=== PATIENT | female | born 2000 | race Caucasian/White ===

== ENCOUNTER 2020-03-16 15:50 | Inpatient (IN) ==
[2020-03-16] MEDS ORDERED: MISOPROSTOL 100 MCG TABLET VG PRN (16:04)
[2020-03-16] MEDS ORDERED: DEXTROSE 5%-LACTATED RINGERS 1,000 ML IV PRN (16:04)
[2020-03-16] MEDS ORDERED: ONDANSETRON 4 MG TAB.RAPDIS PO PRN (16:04)
[2020-03-16] MEDS ORDERED: RINGER'S SOLUTION,LACTATED 1,000 ML IV ONE (16:04)
[2020-03-16] MEDS ORDERED: OXYTOCIN/0.9 % SODIUM CHLORIDE 30 UNITS/500 ML BAG IV ONE (16:04)
--- NOTE | 2020-03-16 17:36 | HP ---
Chief Complaint - Chief Complaint Date of Service: 03/16/20 Time of Service: 16:00 Chief Complaint: oligohydramnios History of Present Illness: 19 yo at 38w2d presents to L&D for induction of labor due to oligohydramnios. Patient has been complaining of LOF for the past few days. She states she is always moist, but has never soaked through her underwear or pants and does not wear a pad. She has been examined multiple times for ROM, but has always been negative. She has had 3 elevated BPs over the course of her care (22wks, 28wks, 35wks). It has always been the first BP taken in the office with subsequent ones negative. She has been followed closely for possible GHTN; labs have always been WNL. Today's CLARITA was only 3.94cm with largest vertical pocket of 1.71cm. This complicated by anemia, hypothyroid, morbid obesity, borderline GHTN, and now oligohydramnios. Rh positive Rubella Nonimmune GBS negative. Medical History (Last Reviewed 03/16/20 @ 17:31 by Álvaro Jimenez DO) Anemia Onset Date: Unknown Anemia during Onset Date: ~01/06/20 History of irregular heartbeat Onset Date: Unknown Hypothyroid Onset Date: Unknown Anxiety Onset Date: Unknown Breast lump in female Onset Date: ~2015 @ age 14. Negative breast u/s. Obesity Onset Date: Unknown Wears glasses Onset Date: Unknown Surgical History: Surgical History (Last Reviewed 03/16/20 @ 17:31 by Álvaro Jimenez DO) No pertinent past surgical history Family History: Family History (Last Reviewed 03/16/20 @ 17:31 by Álvaro Jimenez DO) Mother Medical history unknown Father Alive and well Social History: (Last Reviewed 03/16/20 @ 17:31 by Álvaro Jimenez DO) Social History: adopted: No longterm: No Marital status: Single household members: significant other number of children: 1 current occupational status: unemployed current occupational exposures/hazards: No Highest level of school completed/degree received: high school graduate Sexually Active: Yes Service: No Tobacco: Smoking Status: Never smoker Alcohol: alcohol intake: never Substance Use: substance use type: does not use Dietary Habits: caffeine: Yes caffeine comment: 1/day Type: tea Exercise: Physical activity type: walking frequency: 1-2 times per week Brenna/Congregation: agree to transfusion: Yes Review Of Systems (GEN) - Review of Systems Generalized/Overall Review: Present: No Symptoms Reported EENTM: Present: No Symptoms Reported Respiratory: Present: No Symptoms Reported Cardiac: Present: No Symptoms Reported Abdominal: Present: No Symptoms Reported Genitourinary: Present: No Symptoms Reported, Other - LOF/vaginal d/c Musculoskeletal: Present: No Symptoms Reported Neurological: Present: No Symptoms Reported Skin: Present: No Symptoms Reported Endocrine: Present: No Symptoms Reported Allergies/Adverse Reactions: Allergies Allergy/AdvReac Type Severity Reaction Status Date / Time Tetanus Vaccines and Toxoid Allergy Intermediate Hives Verified 03/10/20 20:48 amoxicillin [From Augmentin] Allergy Unknown unsure Verified 03/10/20 20:48 cefaclor [From Ceclor] Allergy Unknown unsure Verified 03/10/20 20:48 cefuroxime [From Ceftin] Allergy Unknown unsure Verified 03/10/20 20:48 clavulanic acid Allergy Unknown unsure Verified 03/10/20 20:48 [From Augmentin] Penicillins Allergy Unknown unsure Verified 03/10/20 20:48 Home Medications: HOME MEDICATIONS levothyroxine 150 mcg capsule 150 mcg PO DAILY #30 cap 02/25/20 [Last Taken 03/16/20 0900] Vits96/Iron Fum/Folic [ S] 1 tab PO DAILY 03/01/20 [Last Taken 03/15/20 21:00] Ferrous Sulfate [Iron] 325 mg PO DAILY 03/14/20 [Last Taken 03/15/20 21:00] Exam - Exam Vital Signs: Vital Signs - Last Taken Temp 36.7 C 03/16/20 16:07 Pulse 117 H 03/16/20 16:07 Resp 20 03/16/20 16:07 BP 136/82 03/16/20 16:07 Pulse Ox 98 03/16/20 16:07 Constitutional: Present: Alert, Oriented x3, Cooperative, No distress ENT Exam: Present: hearing grossly normal Neck: Present: normal inspection, trachea midline. Absent: thyromegaly Breasts: Present: Exam deferred Respiratory: Present: lungs clear, no respiratory distress Cardiovascular/Chest: Present: normal peripheral pulses, regular rate, rhythm Abdomen: Present: soft, nontender, no rebound tenderness, other - Gravid /Rectal: Present: Other - Cervix 40/-3, no vaginal pooling, fern neg, nitrazine swab neg. Extremity: Present: no pedal edema, no calf tenderness Skin Exam: Present: normal color, warm/dry, no cyanosis Neurologic: Present: alert, normal mood/affect, oriented x 3, other - DTR 2/4, no clonus Appearance: Present: appropriate appearance, appropriate insight Eye contact: Present: cooperative, good eye contact Thoughts: Present: normal thought pattern, normal mood /affect Assessment/Plan - Assessment/Plan (1) Oligohydramnios Assessment: Admit for induction of labor. Epidural and pitocin PRN. Rubella vaccine PP. Problem: Acute Qualifiers: Fetus number: single or unspecified fetus Trimester: third trimester Qualified Code(s): O41.03X0 - Oligohydramnios, third trimester, not applicable or unspecified (2) Morbid obesity with BMI of 45.0-49.9, adult Problem: Chronic (3) Hypothyroid Problem: Chronic Qualifiers: Hypothyroidism type: unspecified Qualified Code(s): E03.9 - Hypothyroidism, unspecified (4) Anemia Problem: Chronic Qualifiers: Anemia type: iron deficiency Iron deficiency anemia type: inadequate dietary iron intake Qualified Code(s): D50.8 - Other iron deficiency anemias (5) Rubella non-immune status, antepartum Problem: Chronic
[2020-03-16] MEDS ORDERED: ACETAMINOPHEN 500 MG TABLET PO ONE (23:36)
[2020-03-16] MEDS ORDERED: ACETAMINOPHEN 500 MG TABLET ONE (23:40)
--- NOTE | 2020-03-17 08:55 | PN ---
Progess Note - Interim Date: 03/17/20 Time: 08:43 Narrative: 03/17/20 08:43 Patient rating her contractions as mild to moderate Vital signs stable. Pitocin at 10 mu/min. FHT: 130 baseline, reassuring contractions q 1-2 min Cervix: 2-3/50/-3, AROM-clear Impression: Intrauterine at 38-3/7 weeks induction of labor for oligohydramnios Plan: Continue present plan
[2020-03-17] MEDS ORDERED: NALOXONE HCL 1 MG/1 ML SYRG IV PRN (09:00)
[2020-03-17] MEDS ORDERED: ONDANSETRON HCL/PF 2 MG/ML VIAL IV PRN (09:00)
[2020-03-17] MEDS ORDERED: fentaNYL CITRATE/PF 50 MCG/ML AMPUL IT SCH (09:00)
[2020-03-17] MEDS ORDERED: BUPIVACAINE HCL/0.9 % NACL/PF 250 ML EP PRN (09:00)
[2020-03-17] MEDS ORDERED: LIDOCAINE HCL 50 ML VIAL ONE (09:42)
[2020-03-17] MEDS ORDERED: LIDOCAINE HCL 50 ML VIAL IJ PRN (09:44)
--- NOTE | 2020-03-17 10:18 | ANES ---
Anesthesia Pre Procedure Eval Vitals/Labs: Last Vital Signs Temp 36.7 C 03/16/20 16:07 Pulse 117 H 03/16/20 16:07 Resp 20 03/16/20 16:07 BP 136/82 03/16/20 16:07 Pulse Ox 98 03/16/20 16:07 HOME MEDICATIONS levothyroxine 150 mcg capsule 150 mcg PO DAILY #30 cap 02/25/20 [Last Taken 03/16/20 0900] Vits96/Iron Fum/Folic [ S] 1 tab PO DAILY 03/01/20 [Last Taken 03/15/20 21:00] Ferrous Sulfate [Iron] 325 mg PO DAILY 03/14/20 [Last Taken 03/15/20 21:00] Allergies/Adverse Reactions: Allergies Allergy/AdvReac Type Severity Reaction Status Date / Time Tetanus Vaccines and Toxoid Allergy Intermediate Hives Verified 03/10/20 20:48 amoxicillin [From Augmentin] Allergy Unknown unsure Verified 03/10/20 20:48 cefaclor [From Ceclor] Allergy Unknown unsure Verified 03/10/20 20:48 cefuroxime [From Ceftin] Allergy Unknown unsure Verified 03/10/20 20:48 clavulanic acid Allergy Unknown unsure Verified 03/10/20 20:48 [From Augmentin] Penicillins Allergy Unknown unsure Verified 03/10/20 20:48 - Planned Procedure Planned Procedure: medical induction for oligohydramnios Medication List Reviewed:: Yes Allergies Verified: Yes Medical History (Last Reviewed 03/17/20 @ 10:17 by Avery Christensen CRNA) Anemia Onset Date: Unknown Anemia during Onset Date: ~01/06/20 History of irregular heartbeat Onset Date: Unknown Hypothyroid Onset Date: Unknown Anxiety Onset Date: Unknown Breast lump in female Onset Date: ~2015 @ age 14. Negative breast u/s. Obesity Onset Date: Unknown Wears glasses Onset Date: Unknown Surgical History (Last Reviewed 03/17/20 @ 10:17 by Avery Christensen CRNA) No pertinent past surgical history Family History (Last Reviewed 03/17/20 @ 10:18 by Avery Christensen CRNA) Mother Medical history unknown Father Alive and well - Family Anesthesia History Family History:: no untoward family reactions to anesthesia - Airway/Neck/Teeth Within Normal Limits:: Yes Teeth Condition: intact Neck Exam: full range of motion Mallampatti Score: 2 Thyromental (T-M) distance: > 6 cm Mandibulo Hyoid distance: > 3 cm - Respiratory Respiratory Physical: lungs clear Smoking Status: Never smoker Sleep Apnea currently treated: No Sleep Apnea by current assessment: No - Cardiovascular Tolerate Activity: Fair Heart Sounds: S1 & S2, Regular - Gastrointestinal NPO since: 0800 - Anesthesia Assessment and Plan ASA Class: PS, II, E Anesthesia Type Plan: Epidural Planned difficult intubation/equipment available: No
--- NOTE | 2020-03-17 10:19 | ANES ---
Post Anesthesia Discharge - Transfer of Care Transfer of Care handoff given to nurse: Yes - Anesthesia Post Op Note Anesthesia Post Op Note: Care transferred to OB RN
--- NOTE | 2020-03-17 10:19 | ANES ---
Post Anesthesia Assessment - Vital Signs Vitals: Last Vital Signs Temp 36.7 C 03/16/20 16:07 Pulse 117 H 03/16/20 16:07 Resp 20 03/16/20 16:07 BP 136/82 03/16/20 16:07 Pulse Ox 98 03/16/20 16:07 Airway Patency: Normal - Mental Status Level Of Consciousness: Awake - Pain Level Pain Score: 2 - N/V Assessment Nausea/Vomiting Presence: None Dehydration:: No
--- NOTE | 2020-03-17 14:00 | ANES ---
Anesthesia Procedure Note Procedure Note: ANESTHESIA PROCEDURE NOTE Date of Procedure: 03/17/2020 Time of procedure: 1005. Performed by: Mil Christensen CRNA Instrument Worker: None. Preprocedure diagnosis: Active labor. Post procedure diagnosis: Same. Procedure: Insertion of labor epidural. Indications: The patient is a 19-year-old multi female in active labor requesting labor epidural for pain management. Findings: See below. Details of the procedure: The patient was placed in a sitting position. Back was prepped with DuraPrep. Patient was then draped in a sterile fashion. Lidocaine 1% was infiltrated to the skin and subcutaneous tissues at the level of the L3 4 interspace. The epidural space was identified using a 18-gauge Tuohy needle with [id number] technique. 20 mcg fentanyl was given intrathecally using a 27 ga. spinal needle. Epidural catheter was inserted without difficulty. Negative test dose was elicited using 5 mL of 1.5% preservative-free lidocaine plus epinephrine 1 200,000. The epidural catheter was then taped and secured in place. EBL: Minimal. Fluids: N/A. Specimen: N/A. Post procedure condition: The patient tolerated the procedure well. No complications were noted. Thank you for this consultation. White CRNA
[2020-03-17] MEDS ORDERED: fentaNYL CITRATE/PF 50 MCG/ML AMPUL IT ONE (15:58)
[2020-03-17 16:02] LABS: Random Urine Total Protein 26.9 mg/dL (0-12)
--- NOTE | 2020-03-17 16:14 | ANES ---
Anesthesia Procedure Note Procedure Note: ANESTHESIA PROCEDURE NOTE Date of Procedure: 03/17/2020 Time of procedure: 1600. Performed by: Mil Christensen CRNA Photo Machine Operator: None. Preprocedure diagnosis: Active labor. Post procedure diagnosis: Same. Procedure:Reinsertion of labor epidural. Indications: The patient is a 19-year-old multigravida female in active labor requesting labor epidural for pain management. Her previously placed epidural was dislodged from the epidural space Findings: See below. Details of the procedure: The patient was placed in a sitting position. Back was prepped with DuraPrep. Patient was then draped in a sterile fashion. Lidocaine 1% was infiltrated to the skin and subcutaneous tissues at the level of the L3 4 interspace. The epidural space was identified using a 18-gauge Tuohy needle with [id number] technique. 20 mcg fentanyl was given intrathecally using a 27 ga. spinal needle. Epidural catheter was inserted without difficulty. Negative test dose was elicited using 5 mL of 1.5% preservative-free lidocaine plus epinephrine 1 200,000. The epidural catheter was then taped and secured in place. EBL: Minimal. Fluids: N/A. Specimen: N/A. Post procedure condition: The patient tolerated the procedure well. No complications were noted. Thank you for this consultation. White CRNA
[2020-03-17 16:23] LABS: Hemoglobin 11.1 gm/dL (12.5-16.0); Mean Cell Volume 80.4 fl (78-100); Mean Corpuscular Hemoglobin 24.8 pg (27-31); Mean Corpuscular Hgb Conc 30.8 g/dl (32-36); Mean Platelet Volume 9.7 fl (8-12.5); Neutrophil # 11.2 K/mm3 (1.3-6.0); Neutrophil % 80.1 % (42-75.0); Platelet Count 244 K/mm3 (150-450); Red Blood Count 4.48 M/mm3 (4.2-5.4); Red Cell Distribution Width 15.6 % (11.5-14.0)
[2020-03-17 16:42] LABS: Albumin * 2.5 gm/dl (3.4-5.0); Anion Gap 17.4 mmol/L (6.8-13.8); BUN/Creatinine Ratio 7.5 (9.0-21.6); Bilirubin, Total 0.3 mg/dL (0.0-1.1); Calcium * 9.1 mg/dL (7.9-10.9); Carbon Dioxide 20.3 mmol/L (24-32.6); Potassium 3.7 mmol/L (3.4-4.6); Total Protein 6.9 gm/dL (6.2-8.2)
[2020-03-17] MEDS ORDERED: OXYTOCIN/0.9 % SODIUM CHLORIDE 30 UNITS/500 ML BAG IV ONE (17:07)
[2020-03-17] MEDS ORDERED: SENNOSIDES 8.6 MG TABLET PO PRN (17:07)
[2020-03-17] MEDS ORDERED: oxyCODONE HCL/ACETAMINOPHEN 1 TAB TABLET PO PRN (17:07)
[2020-03-17] MEDS ORDERED: ACETAMINOPHEN 500 MG TABLET PO PRN (17:07)
[2020-03-17] MEDS ORDERED: GLYCERIN/WITCH HAZEL LEAF 40 APPL BOX TP PRN (17:07)
[2020-03-17] MEDS ORDERED: HYDROCORTISONE 30 APPL TUBE TP PRN (17:07)
[2020-03-17] MEDS ORDERED: BISACODYL 10 MG SUPP.RECT RC PRN (17:07)
[2020-03-17] MEDS ORDERED: BENZOCAINE/MENTHOL 81 SPRAY CAN TP PRN (17:07)
--- NOTE | 2020-03-17 17:20 | OR ---
Operative Report - Dictated Report Narrative: Spontaneous vaginal delivery of vigorously crying viable female at 1639 on 03/17/2020 with Apgars 9 and 9, weighing 3562 g in ALYSHA position. Cord clamping delayed approximately 1 minute Placenta delivered complete, intact, with three vessel cord Estimated blood loss: Less than 50 ml Anesthesia: Epidural Lacerations: First-degree posterior vaginal laceration less than 1 cm with no repair necessary. History for History for Definition: * The number of deliveries resulting in a live the patient experienced prior to current hospitalization * The previous delivery of live twins or any live multiple gestation is considered one live event. *If primagravida or nulliparous is documented select zero for the number of previous live births. Live Events: Live Events: 1
[2020-03-17] MEDS: IBUPROFEN 800 MG TABLET PO PRN (18:16)
[2020-03-17] MEDS: DOCUSATE SODIUM 100 MG CAPSULE PO SCH (20:52)
[2020-03-18] MEDS: IBUPROFEN 800 MG TABLET PO PRN ×3 (03:45→18:27)
[2020-03-18] MEDS: LEVOTHYROXINE SODIUM 150 MCG TABLET PO SCH (07:16)
[2020-03-18] MEDS: FERROUS SULFATE 325 MG TABLET PO SCH (08:46)
[2020-03-18] MEDS: PRENATAL VITS96/IRON FUM/FOLIC 1 TAB TABLET PO SCH (08:46)
[2020-03-18] MEDS: DOCUSATE SODIUM 100 MG CAPSULE PO SCH ×2 (08:46→21:00)
--- NOTE | 2020-03-18 09:30 | PN ---
Subjective - Date and Time Seen Date: 03/18/20 Time: 09:00 Objective - Vitals Vitals: Last Vital Signs Temp 36.1 C 03/18/20 06:32 Pulse 81 03/18/20 06:32 Resp 18 03/18/20 06:32 BP 133/77 03/18/20 06:32 Pulse Ox 98 03/18/20 06:32 Patient complains of back being sore where epidural was placed. Denies headache, visual changes, or epigastric pain. Lochia wnl abdomen - soft, nontender Uterus -firm, at umbilicus - 1 No calf tenderness Impression: day #1 - s/p spontaneous vaginal delivery. Gestational hypertension-stable Plan: Continue routine care. Preeclampsia precautions - Abnormal Lab Findings Abnormal Lab Findings: Abnormal Lab Results 03/17/20 03/17/20 03/17/20 Range/Units 15:40 16:15 16:15 WBC 14.0 H (4.0-10.5) K/mm3 Hgb 11.1 L (12.5-16.0) gm/dL Hct 36.0 L (37.0-47.0) % MCH 24.8 L (27-31) pg MCHC 30.8 L (32-36) g/dl RDW 15.6 H (11.5-14.0) % Immature Gran # (Auto) 0.06 H (0.000-0.0310) K/mm3 Neutrophils % 80.1 H (42-75.0) % Lymphocytes % 12.8 L (20-51) % Neutrophils # 11.2 H (1.3-6.0) K/mm3 Carbon Dioxide 20.3 L (24-32.6) mmol/L Anion Gap 17.4 H (6.8-13.8) mmol/L BUN/Creatinine Ratio 7.5 L (9.0-21.6) ALT 18 L (19-67) U/L Albumin 2.5 L (3.4-5.0) gm/dl U Random Total Protein 26.9 H (0-12) mg/dL U Amado Prot/Creat Ratio 288 H (0-199) mg/gm Cauti Physician Documentation - Urinary Catheter Management Urethral ([place]) Date of Insertion: 03/17/20 Time of Insertion: 10:30 Date of Removal: 03/17/20 Time of Removal: 16:30 Assessment/Plan - Problems/Diagnosis (1) Oligohydramnios Problem: Acute Qualifiers: Fetus number: single or unspecified fetus Trimester: third trimester Qualified Code(s): O41.03X0 - Oligohydramnios, third trimester, not applicable or unspecified (2) Morbid obesity with BMI of 45.0-49.9, adult Problem: Chronic (3) Hypothyroid Problem: Chronic Qualifiers: Hypothyroidism type: unspecified Qualified Code(s): E03.9 - Hypothyroidism, unspecified (4) Anemia Problem: Chronic Qualifiers: Anemia type: iron deficiency Iron deficiency anemia type: inadequate dietary iron intake Qualified Code(s): D50.8 - Other iron deficiency anemias (5) Rubella non-immune status, antepartum Problem: Chronic
[2020-03-19] MEDS: IBUPROFEN 800 MG TABLET PO PRN ×2 (01:16→07:36)
[2020-03-19] MEDS: LEVOTHYROXINE SODIUM 150 MCG TABLET PO SCH (07:36)
[2020-03-19] MEDS: PRENATAL VITS96/IRON FUM/FOLIC 1 TAB TABLET PO SCH ×2 (07:36→08:01)
[2020-03-19] MEDS: DOCUSATE SODIUM 100 MG CAPSULE PO SCH ×2 (07:36→08:01)
[2020-03-19] MEDS: FERROUS SULFATE 325 MG TABLET PO SCH ×2 (07:36→08:01)
[2020-03-19 07:41] VITALS: BP 142/88
--- NOTE | 2020-03-19 08:49 | PN ---
Subjective - Date and Time Seen Date: 03/19/20 Time: 08:00 Objective - Vitals Vitals: Last Vital Signs Temp 36.2 C 03/19/20 07:40 Pulse 83 03/19/20 07:40 Resp 18 03/19/20 07:40 BP 142/88 H 03/19/20 07:40 Pulse Ox 99 03/19/20 07:40 Patient denies complaints. Patient specifically denies headache, visual changes, or epigastric pain. Lochia wnl abdomen - soft, nontender Uterus -firm, at umbilicus - 2 No calf tenderness. DTR-2/4. 1+ pitting edema on bilateral lower extremities Impression: day #2 - s/p spontaneous vaginal delivery. Gestational hypertension-mild and persistent Plan: Routine discharge instructions. Preeclampsia precautions. Cauti Physician Documentation - Urinary Catheter Management Urethral ([place]) Date of Insertion: 03/17/20 Time of Insertion: 10:30 Date of Removal: 03/17/20 Time of Removal: 16:30 Assessment/Plan - Problems/Diagnosis (1) Normal spontaneous vaginal delivery Problem: Acute (2) Gestational hypertension Problem: Acute Qualifiers: Trimester: third trimester Qualified Code(s): O13.3 - Gestational [pregn kd-induced] hypertension without significant proteinuria, third trimester (3) Oligohydramnios Problem: Resolved Qualifiers: Fetus number: single or unspecified fetus Trimester: third trimester Qualified Code(s): O41.03X0 - Oligohydramnios, third trimester, not applicable or unspecified (4) Morbid obesity with BMI of 45.0-49.9, adult Problem: Chronic (5) Hypothyroid Problem: Chronic Qualifiers: Hypothyroidism type: unspecified Qualified Code(s): E03.9 - Hypothyroidism, unspecified (6) Anemia Problem: Chronic Qualifiers: Anemia type: iron deficiency Iron deficiency anemia type: inadequate dietary iron intake Qualified Code(s): D50.8 - Other iron deficiency anemias (7) Rubella non-immune status, antepartum Problem: Chronic
--- NOTE | 2020-03-19 08:53 | DS ---
OB Discharge Summary (1) Normal spontaneous vaginal delivery Status: Acute (2) Gestational hypertension Status: Acute Qualifiers: Trimester: third trimester Qualified Code(s): O13.3 - Gestational [-induced] hypertension without significant proteinuria, third trimester (3) Oligohydramnios Status: Resolved Qualifiers: Fetus number: single or unspecified fetus Trimester: third trimester Qualified Code(s): O41.03X0 - Oligohydramnios, third trimester, not applicable or unspecified (4) Morbid obesity with BMI of 45.0-49.9, adult Status: Chronic (5) Hypothyroid Status: Chronic Qualifiers: Hypothyroidism type: unspecified Qualified Code(s): E03.9 - Hypothyroidism, unspecified (6) Anemia Status: Chronic Qualifiers: Anemia type: iron deficiency Iron deficiency anemia type: inadequate dietary iron intake Qualified Code(s): D50.8 - Other iron deficiency anemias (7) Rubella non-immune status, antepartum Status: Chronic Delivery Date: 03/17/20 Delivery Time: 16:39 :: 2 Para:: 2 Gestational weeks:: 38 Gestational days:: 3 Intrapartum Procedures: Spontaneous Vaginal Delivery, Delivered, Anesthesia - Epidural /OP Complications: GHTN Discharge Diagnosis: Term -Delivered, Gestational Hypertension, Rubella Nonimmune - Discharge Information Date of Discharge: 03/19/20 Hospital Course: 19-year-old 2 now para 2 admitted at 38 to 7 weeks for induction of labor due to oligohydramnios with borderline elevated pressures. During her course of labor she developed elevated pressures getting the diagnosis of gestational hypertension. Her course was complicated by persistent mildly elevated blood pressures. She was discharged to home with routine discharge instructions with the addition of preeclampsia precautions. She will get her rubella vaccination at her visit. Discharge Location: Home Disposition: Home self-care Condition: Good Referrals: Erick Delong ARNP [Primary Care Provider] - Activity on Discharge:: Activity as tolerated, Pelvic Rest Discharge Diet: General/regular food Additional Patient Instructions (free text): Misha's follow up appt is tomorrow, Monday03/19/20 @ Her Blood Type is O+. Her Weight Today 7 pounds 9.5 ounces. Her Bilirubin is 5.3 at 36 hours of age. Feed her on demand or at least every 3-[address] her on her back in her own crib or bassinet for sleep.No pillows, blankets, stuffed animals, or bumper pads in her sleep space. Olive, Your follow up appt is on Please call with any questions/concerns. [facility] [phone], [facility] [phone], [facility] [phone]. Prescriptions (Any new or edited meds): Ibuprofen [Motrin] 200 - 800 mg PO Q6H PRN #100 tab PRN Reason: Pain Complete Home Medications List: Complete Home Medication List: levothyroxine 150 mcg capsule 150 mcg PO DAILY #30 cap 02/25/20 Vits96/Iron Fum/Folic [ S] 1 tab PO DAILY 03/01/20 Ferrous Sulfate [Iron] 325 mg PO DAILY 03/14/20 Ibuprofen [Motrin] 200 - 800 mg PO Q6H PRN #100 tab 03/19/20 - Plan Discharge to:: Home Follow up in office in:: 1 week - Information Weight (Grams): 3,562 Infant Sex: Female Score 1 min: 9 Score 5 min: 9 Complications: None
== END 2020-03-19 10:30 | disposition home or self-care (01) | DRG 806 ==
LOC: OB 15:50
PROVIDERS: ADMIT Obstetrics & Gynecology; ATTEND Obstetrics & Gynecology